=== PATIENT | male | born 1960 | race African-American/Black ===

== ENCOUNTER 2021-02-23 09:25 | Inpatient (IN) | payer MEDICAID ==
[~2021-02-23] VITALS: Ht 172.7 cm; Wt 185.1 kg
[2021-02-23 10:17] LABS: CHLORIDE 111 mEq/L (98-107)
[2021-02-23 10:18] LABS: BASOPHILS % 0.6 % (0.0-2.0); EOSINOPHILS % 2.7 % (0.0-5.0); HEMATOCRIT. 43.3 % (42.0-52.0); HEMOGLOBIN. 13.8 g/dL (14.0-18.0); LYMPHOCYTES % 20.8 % (20.0-50.0); MEAN CORPUSCULAR HEMOGLOBIN 25.3 pg (28.0-32.0); MEAN CORPUSCULAR VOLUME 79.4 fL (80.0-94.0); MEAN PLATELET VOLUME 8.6 fl (7.4-10.4); MONOCYTES % 10.2 % (2.0-8.0); NEUTROPHILS % 65.7 % (40.0-76.0); PLATELET 271 x1000/uL (130-400); RED BLOOD CELL COUNT 5.45 mill/uL (4.7-6.1); RED CELL DISTRIBUTION WIDTH 17.3 % (11.6-14.6)
[2021-02-23 10:25] LABS: CREATINE KINASE 266 IU/L (39-308)
[2021-02-23 10:28] LABS: D-DIMER 0.77 mg/L FEU (<0.50)
[2021-02-23] MEDS ORDERED: FUROSEMIDE 40MG/4ML VIAL IVP ONE (10:30)
[2021-02-23] MEDS ORDERED: IPRATROPIUM BROMIDE (0.02%) 0.5MG/2.5ML NEB HHN STA (11:08)
[2021-02-23] MEDS ORDERED: ALBUTEROL (0.083%) 2.5MG/3ML NEB HHN STA (11:08)
[2021-02-23] MEDS ORDERED: AZITHROMYCIN 500 MG in DEXT 5% WATER 250 ML IV STA (12:32)
[2021-02-23] MEDS ORDERED: CEFTRIAXONE 1 G PREMIX 50 ML IV ONE (12:45)
[2021-02-23] MEDS ORDERED: AMLODIPINE 10MG TABLET PO ONE (13:45)
[2021-02-23] MEDS ORDERED: ACETAMINOPHEN 325MG TABLET PO PRN (13:45)
[2021-02-23] MEDS ORDERED: ALBUTEROL 6.7GM HFA INHALER ORI PRN ×2 (13:45→15:30)
[2021-02-23] MEDS ORDERED: ONDANSETRON HCL 4MG/2ML INJ IV PRN (13:45)
[2021-02-23] MEDS: FUROSEMIDE 40MG/4ML VIAL IVP SCH (14:35)
[2021-02-23 15:14] LABS: CLARITY URINE CLEAR (CLEAR); COLOR URINE YELLOW (YELLOW); KETONES URINE NEGATIVE (NEGATIVE); LEUKOCYTE ESTERASE URINE NEGATIVE (NEGATIVE); NITRITE URINE NEGATIVE (NEGATIVE); OCCULT BLOOD URINE NEGATIVE (NEGATIVE); PROTEIN URINE NEGATIVE (NEGATIVE); SPECIFIC GRAVITY URINE 1.011 (1.005-1.030); UROBILINOGEN URINE 0.2 E.U./dL (0.2-1.0)
[2021-02-23 15:39] LABS: OPIATES URINE SCREEN NEGATIVE (NEGATIVE)
[2021-02-23 15:40] LABS: *AMPHETAMINES SCREEN URINE NEGATIVE (NEGATIVE); *BARBITURATES SCREEN URINE NEGATIVE (NEGATIVE); *BENZODIAZEPINES SCREEN URINE NEGATIVE (NEGATIVE); *COCAINE SCREEN URINE NEGATIVE (NEGATIVE); CANNABINOID URINE SCREEN NEGATIVE (NEGATIVE); PHENCYCLIDINE URINE SCREEN NEGATIVE (NEGATIVE)
[2021-02-23 15:41] LABS: METHADONE URINE SCREEN NEGATIVE (NEGATIVE)
[2021-02-23 23:18] VITALS: BP 128/60
[2021-02-24] VITALS: BP 128/60
[2021-02-24] MEDS ORDERED: TRAM50TA3 PO (00:17)
[2021-02-24] MEDS ORDERED: LORA10TA7 PO (00:17)
[2021-02-24] MEDS ORDERED: AMLO10TA80 PO (00:17)
[2021-02-24] MEDS ORDERED: NAPR-681 PO (00:17)
[2021-02-24] MEDS ORDERED: FLUT16SP15 (00:17)
[2021-02-24] MEDS ORDERED: CARV25TA47 PO (00:17)
[2021-02-24] MEDS ORDERED: ASPI-1406 PO (00:17)
[2021-02-24] MEDS ORDERED: IPRA3AMP9 NEB (00:17)
[2021-02-24] MEDS ORDERED: POTA8CAP20 PO (00:17)
[2021-02-24] MEDS ORDERED: UMEC62.5 PO (00:17)
[2021-02-24] MEDS ORDERED: LISI20TA31 PO (00:17)
[2021-02-24] MEDS ORDERED: ATOR20TA65 PO (00:17)
[2021-02-24] MEDS ORDERED: FLUT1BLS12 PO (00:17)
[2021-02-24] MEDS ORDERED: FURO20TA4 PO (00:17)
[2021-02-24] MEDS ORDERED: NALOXONE HCL 0.4MG/ML VIAL IV PRN (00:45)
[2021-02-24 04:00] VITALS: BP 155/79
[2021-02-24] MEDS ORDERED: *PATIENT'S OWN MEDICATION STORAGE XX SCH (05:15)
[2021-02-24 07:01] LABS: CHLORIDE 104 mEq/L (98-107)
[2021-02-24 07:07] LABS: HEMATOCRIT. 40.7 % (42.0-52.0); HEMOGLOBIN. 13.2 g/dL (14.0-18.0); MEAN CORPUSCULAR HEMOGLOBIN 25.3 pg (28.0-32.0); MEAN CORPUSCULAR VOLUME 77.7 fL (80.0-94.0); PLATELET 281 x1000/uL (130-400); RED BLOOD CELL COUNT 5.24 mill/uL (4.7-6.1); RED CELL DISTRIBUTION WIDTH 16.9 % (11.6-14.6)
[2021-02-24 08:00] VITALS: BP 137/66
[2021-02-24] MEDS: ENOXAPARIN 40MG/0.4ML SYR SUBCUT SCH ×2 (09:07→20:18)
[2021-02-24] MEDS: FUROSEMIDE 40MG/4ML VIAL IVP SCH ×2 (09:08→17:25)
[2021-02-24] MEDS: CARVEDILOL 3.125 MG TABLET PO SCH ×2 (09:08→20:18)
[2021-02-24] MEDS: ASPIRIN 81MG TABLET PO SCH (09:08)
[2021-02-24] MEDS: POTASSIUM CHLORIDE 8 MEQ TABLET.SA PO SCH (09:08)
[2021-02-24 12:00] VITALS: BP 137/78
[2021-02-24] MEDS ORDERED: IPRATROPIUM/ALBUTEROL 0.5-3(2.5)MG/3ML NEB HHN PRN (12:15)
[2021-02-24] MEDS ORDERED: METOLAZONE 2.5MG TABLET PO SCH (12:30)
[2021-02-24 16:00] VITALS: BP 150/57
[2021-02-24 18:55] LABS: PLATELET ESTIMATE NORMAL
[2021-02-24 20:00] VITALS: BP 128/66
[2021-02-24] MEDS: ATORVASTATIN CALCIUM 20MG TABLET PO SCH (20:18)
[2021-02-25] VITALS: BP 156/65
[2021-02-25 04:00] VITALS: BP 153/63
[2021-02-25] MEDS: HYDROCODONE/ACETAMINOPHEN 5/325MG TABLET PO PRN ×2 (06:25→16:59)
[2021-02-25 08:00] VITALS: BP 136/76
[2021-02-25] MEDS: ASPIRIN 81MG TABLET PO SCH (09:10)
[2021-02-25] MEDS: FUROSEMIDE 40MG/4ML VIAL IVP SCH ×2 (09:10→16:50)
[2021-02-25] MEDS: POTASSIUM CHLORIDE 8 MEQ TABLET.SA PO SCH (09:10)
[2021-02-25] MEDS: ENOXAPARIN 40MG/0.4ML SYR SUBCUT SCH ×2 (09:10→20:17)
[2021-02-25] MEDS: CARVEDILOL 3.125 MG TABLET PO SCH ×2 (09:10→20:17)
[2021-02-25 11:29] LABS: BASOPHILS % 0.9 % (0.0-2.0); EOSINOPHILS % 6.7 % (0.0-5.0); HEMATOCRIT. 44.4 % (42.0-52.0); HEMOGLOBIN. 14.5 g/dL (14.0-18.0); LYMPHOCYTES % 24.6 % (20.0-50.0); MEAN CORPUSCULAR HEMOGLOBIN 25.2 pg (28.0-32.0); MEAN CORPUSCULAR VOLUME 77.3 fL (80.0-94.0); MEAN PLATELET VOLUME 8.9 fl (7.4-10.4); MONOCYTES % 13.5 % (2.0-8.0); NEUTROPHILS % 54.3 % (40.0-76.0); PLATELET 301 x1000/uL (130-400); RED BLOOD CELL COUNT 5.75 mill/uL (4.7-6.1); RED CELL DISTRIBUTION WIDTH 16.3 % (11.6-14.6)
[2021-02-25 11:46] LABS: CHLORIDE 96 mEq/L (98-107)
[2021-02-25 12:00] VITALS: BP 125/60
[2021-02-25 16:00] VITALS: BP 136/85
[2021-02-25 20:00] VITALS: BP 116/68
[2021-02-25] MEDS: ATORVASTATIN CALCIUM 20MG TABLET PO SCH (20:17)
[2021-02-26] VITALS: BP 143/66
[2021-02-26 04:00] VITALS: BP 109/64
[2021-02-26 08:00] VITALS: BP 127/68
[2021-02-26] MEDS: FUROSEMIDE 40MG/4ML VIAL IVP SCH (08:30)
[2021-02-26] MEDS: CARVEDILOL 3.125 MG TABLET PO SCH (08:30)
[2021-02-26] MEDS: POTASSIUM CHLORIDE 8 MEQ TABLET.SA PO SCH (08:30)
[2021-02-26] MEDS: ASPIRIN 81MG TABLET PO SCH (08:30)
[2021-02-26] MEDS: ENOXAPARIN 40MG/0.4ML SYR SUBCUT SCH (08:30)
[2021-02-26] MEDS: HYDROCODONE/ACETAMINOPHEN 5/325MG TABLET PO PRN (08:42)
[2021-02-26 12:00] VITALS: BP 125/81
[2021-02-26] MEDS ORDERED: FURO-151 MT (13:53)
[2021-02-26] MEDS ORDERED: CARV25TA47 MT (13:53)
[2021-02-26] MEDS ORDERED: LISI20TA31 MT (13:56)
[2021-02-26] MEDS ORDERED: POTA-79 MT (13:56)
[2021-02-26 16:00] VITALS: BP 147/79
[2021-02-26 16:17] VITALS: BP 147/73
== END 2021-02-26 17:10 | disposition home or self-care (01) | DRG 133 ==
LOC: ER 09:25 → EDBEDREQ 11:21 → EDBEDREQTM 11:21 → MICUSO 12:31 → EDBEDREQ 12:44 → 7EST 22:49
PROVIDERS: ADMIT Internal Medicine; ATTEND Internal Medicine
PROC: 5A09457 Assistance with Respiratory Ventilation, 24-96 Consecutive Hours, Continuous Positive Airway Pressure (ICD-10-PCS; principal; 2021-02-24)
DX: J96.00 Acute respiratory failure, unspecified whether with hypoxia or hypercapnia (principal); I50.41 Acute combined systolic (congestive) and diastolic (congestive) heart failure; E87.8 Other disorders of electrolyte and fluid balance, not elsewhere classified; E66.01 Morbid (severe) obesity due to excess calories; J44.9 Chronic obstructive pulmonary disease, unspecified; I11.0 Hypertensive heart disease with heart failure; Z20.822 Contact with and (suspected) exposure to COVID-19; G47.33 Obstructive sleep apnea (adult) (pediatric); Z82.49 Family history of ischemic heart disease and other diseases of the circulatory system; Z68.44 Body mass index [BMI] 60.0-69.9, adult
CPT/HCPCS: 36415; 71045; 80048; 80053; 80305; 81003; 82550; 82728; 83605; 83615; 83880; 84145; 84484; 85025; 85379; 85384; 86140; 87426; 93005; 93306; 93970; 94640; 99291; J0456; J0696; J1650; J1940; J7060